=== PATIENT | male | born 1970 | race Caucasian/White ===

== ENCOUNTER → 2018-04-07 | Outpatient (CLI) | payer BC ==
[~2018-04-07] MED LIST: ADIPEX-P37.5 MG PO; ANDROGEL162PKT TOP; ASPIRIN 32325 MG/TAB PO; ASPIRIN E.C. 8181 MG PO; CALCIUM + D 6001 TA1 PO; DAZIDOX10 MG PO; FASTIN30 MG; FASTIN30 MG PO; MULTIPLE VITAMI1 CAP PO; MULTIPLE VITAMI1 TA1 PO; MULTIPLE VITAMI1 TA7 PO; NEXIUM 20MG20 MG PO; NEXIUM 40MG40 MG PO; NUVIGIL50 MG PO; OXYCONTIN 80MG80 MG; OXYCONTIN PO; PLAQUENIL 200M200 MG; PLAQUENIL 200M200 MG PO; PREDNISONE1 MG; PREDNISONE1 MG PO; TOPAMAX 25MG25 M1 PO; TYLENOL 500MG500 MG PO; TYLENOL EXTRA500 M1; TYLENOL EXTRA500 M1 PO; VIT D; ZOLOFT 100MG100 MG; ZOLOFT 100MG100 MG PO; ZYRTEC 10MG10 MG PO; ZYRTEC5 MG PO
== END ==
LOC: COL.RAD 08:15
DX: M79.602 Pain in left arm (principal)